=== PATIENT | female | born 1990 | race Hispanic/Latino ===

== ENCOUNTER 2019-08-18 10:36 | Inpatient (IN) | payer MEDICAID ==
[2019-08-18 11:40] LABS: #Basophils 0.1 thou/uL (0.0-0.2); #Eosinphils 0.4 thou/uL (0.0-0.7); #Lymphocytes 3.5 thou/uL (1.20-3.40); #Monocytes 0.9 thou/uL (0.11-0.59); %Basophils 0.9 % (0.0-1.0); %Eosinophils 3.6 % (0.0-10.0); %Lymphocytes 29.3 % (21.0-51.0); %Monocytes 7.6 % (0.0-10.0); %Neutrophils 58.7 % (42.0-75.0); Hemoglobin 12.4 g/dL (12.0-16.0); Mean Corpuscular HGB CONC 31.4 g/dL (32.0-36.0); Mean Corpuscular Hemoglobin 26.8 pg (27.0-31.0); Mean Corpuscular Volume 85.1 fL (78.0-98.0); Mean Platelet Volume 9.9 fL (7.4-10.4); Platelet Count 226 thou/uL (130-400); RBC Distribution Width 13.9 % (11.5-14.5); Red Blood Cell (RBC) Count 4.62 mill/uL (4.20-5.40); White Blood Cell (WBC) Count 11.9 thou/uL (4.8-10.8)
[2019-08-18] MEDS ORDERED: Iopamidol 370 76% 50 ML VIAL FS ONE (12:00)
[2019-08-18 12:05] LABS: Bilirubin Negative (Negative); Blood, Urine Negative (Negative); Clarity Clear (Clear); Glucose, Urine (Dipstick) Normal (Negative); Leukocyte Negative Leu/uL (Negative); Nitrite Negative (Negative); Protein, Urine (Dipstick) 30 mg/dL (Neg-Trace); RBC/HPF 0-3 HPF (0-3); Squamous Epithelial 0-3 HPF (0-3); Urobilinogen Normal mg/dL (Less than 2); WBC/HPF 0-3 HPF (0-3)
[2019-08-18 12:09] LABS: Bacteria/HPF 1+ HPF (None Seen)
[2019-08-18 12:12] LABS: ALT (SGPT) 7 U/L (8-55); AST (SGOT) 10 U/L (5-34); Albumin 3.8 g/dL (3.5-5.0); Alkaline Phosphatase 179 U/L (40-110); Anion Gap 19 mmol/L (10-20); BUN (Urea Nitrogen) 55 mg/dL (7.0-18.7); Bilirubin, Total 0.4 mg/dL (0.2-1.2); Calc. Creatinine Clearance 0 mL/min (70-130); Calcium 8.6 mg/dL (7.8-10.44); Carbon Dioxide 23 mmol/L (22-29); Chloride 103 mmol/L (98-107); Estimated GFR-MDRD 6; Globulin 3.4 g/dL (2.4-3.5); Potassium 4.6 mmol/L (3.5-5.1); Protein, Total 7.2 g/dL (6.0-8.3); Sodium 140 mmol/L (136-145)
--- NOTE | 2019-08-18 12:12 | RAD ---
XR Abdomen 2 View/1 View Cxr History: Pain Comparison: Chest radiograph May 2019 Findings: There is pneumoperitoneum. Lungs are clear. No pneumothorax. Catheter projected left lower hemiabdomen. No dilated air-filled loops of large or small bowel. Impression: Mild to moderate pneumoperitoneum. Code CR: Dr. Khan notified of findings via telephone at 12:08 PM
[2019-08-18 12:16] LABS: Glucose 55 mg/dL (70-105)
[2019-08-18 15:07] LABS: RBC Count-Automated (BF) 0 /cumm; WBC/Nucleated-Auto (BF) 533 uL
[2019-08-18 15:23] LABS: BF Color Colorless; Body Fluid Source Peritoneal Fluid; Clarity Hazy (Clear); Tube # EDTA
[2019-08-18 15:26] LABS: BF Segmented Neutrophils 4 %; Cell Count Non Hematic 82 %; Eosinophils 9 %; Lymphocytes 3 %
[2019-08-18] MEDS ORDERED: cefTRIAXone\\ROCEPHIN 2 GM in Sodium Chloride 0.9% 100 ML IVPB SCH (16:15)
[2019-08-18] MEDS ORDERED: cefTRIAXone\\ROCEPHIN 2 GM VIAL ONE ×2 (16:41→16:44)
[2019-08-18] MEDS ORDERED: Sodium Chloride 0.9% 200 ML ONE (17:03)
[2019-08-18] MEDS ORDERED: Morphine 4 MG/ML VIAL ONE (17:04)
[2019-08-18] MEDS ORDERED: Ondansetron PF 4 MG/2 ML Vial ONE (17:04)
[2019-08-18] MEDS ORDERED: VANCOMYCIN HCL FS SCH (17:15)
[2019-08-18] MEDS ORDERED: GENTAMICIN SULFATE FS SCH (17:15)
[2019-08-18] MEDS ORDERED: [UNRECOGNIZED DRUG - OTHER] FS SCH (17:15)
[2019-08-18 17:39] LABS: Pregnancy Test - Urine (BHCG) Negative (Negative); Pregu Control Background? CLEAR/WHITE (CLR/WHITE); Pregu Control Bar Appear? YES (CONTROL BAR); Specific Gravity 1.008 (1.002-1.036)
--- NOTE | 2019-08-18 18:09 | CON ---
DATE OF CONSULTATION: 08/18/2019 SERVICE: Nephrology. REQUESTING PHYSICIAN: Dr. Bi Khan. REASON FOR CONSULTATION: Abdominal pain and possible peritonitis in PD. HISTORY OF PRESENT ILLNESS: A 28-year-old female with known history of end-stage renal disease, on peritoneal dialysis, presents with 3 days of worsening abdominal pain, which is said to be worse during drainage and at the beginning of filling of PD fluid. There was no associated fever, nausea, vomiting, leg swelling, dizziness, change in bowel habits, or shortness of breath. Due to worsening symptoms, the patient presented to the ER. Peritoneal fluid obtained was suggestive of peritonitis. X-ray of the abdomen showed free air in the abdomen. PAST MEDICAL HISTORY: 1. End-stage renal disease, on peritoneal dialysis. 2. Hypertension. 3. Anemia of chronic kidney disease. PAST SURGICAL HISTORY: 1. Kidney biopsy in [place]. 2. Abdominal hernia repair. 3. PD catheter placement. 4. AV fistula creation. FAMILY HISTORY: Significant for hypertension in mother. SOCIAL HISTORY: The patient lives with mom. Denied alcohol or recreational drug use. ALLERGIES: NO KNOWN DRUG ALLERGIES REPORTED. CURRENT HOME MEDICATIONS: 1. Sodium bicarbonate 650 mg p.o. b.i.d. 2. Fosrenol 1000 mg t.i.d. 3. Torsemide 20 mg p.o. daily. 4. Calcitriol 0.25 mcg daily. 5. Lisinopril 20 mg p.o. daily. 6. Ergocalciferol 1.25 mg once a month. REVIEW OF SYSTEMS: A 12-point review of system performed was negative other than pertinent positives and negatives included in the history of present illness. PHYSICAL EXAMINATION: VITAL SIGNS: Temperature 98.7, pulse rate 67, respiratory rate 15, SpO2 of 97% on room air, and blood pressure 117/83. GENERAL: Young female, in mild painful distress. HEENT: Normocephalic and atraumatic. Oral mucosa is moist. NECK: Supple and nontender with good range of motion. No JVD appreciated. CARDIOVASCULAR: Regular rhythm and rate with normal heart sounds 1 and 2. Soft systolic murmur noted. RESPIRATORY: Good air entry bilaterally with no obvious crackle or rhonchi or use of accessory muscles. GI: Full, soft, and nondistended with normal bowel sounds. Mild abdominal tenderness noted. PD catheter with dressing noted as well. EXTREMITIES: Grossly normal looking atraumatic with no edema, erythema, or cyanosis. FORGING OPERATOR: Conscious and alert and oriented x3 with appropriate mental status. Cranial nerves II through XII are grossly intact. DIAGNOSTIC DATA: CBC showed WBC count of 11.9, hemoglobin of 12.4, MCV of 85.1, platelet of 226 with neutrophil percent of 58.7. CMP showed sodium of 140, potassium 4.6, chloride 103, CO2 of 23, BUN 55, creatinine 8.20, glucose 55, calcium 8.6, total bilirubin 0.4. AST 10, ALT 7, alkaline phosphatase 179, total protein 7.2, albumin 3.8, and globulin 3.4. Urinalysis showed clear urine with pH of 7.0, specific gravity of 1.008. Urine protein of 30 mg/dL, negative ketone, blood, nitrite, bilirubin, and leukocyte esterase. Microscopy showed 0 to 3 rbc and 0 to 3 wbc. PD fluid analysis showed colorless hazy fluid with WBC count of 533 with zero RBC. Differential showed 4% neutrophils, 3% lymphocytes, 9% eosinophils, 2% basophils, and 82% non-hematologic cells. Acute abdominal series x-ray showed [id number] pneumoperitoneum, but no dilated air filled loops of large intestine or small intestine noted. ASSESSMENT: 1. Acute abdominal pain of unclear etiology. 2. Possible peritoneal dialysis associated peritonitis: Though there is leukocytosis, but most of the cells are not white blood cells, actually they are non-hematologic. This raises question about this diagnosis. 3. Pneumoperitoneum of unclear etiology. 4. Hypertension, controlled. 5. End-stage renal disease, on peritoneal dialysis. PLAN: We will start intraperitoneal antibiotic therapy according to protocol. We will also get CT scan of the abdomen and pelvis with oral contrast. Analgesic as needed will be provided. We will await peritoneal fluid culture. We will continue other treatments. We will monitor electrolytes and replete as needed. Further treatment to follow depending on hospital course. Job ID: [id number]
[2019-08-18 18:25] VITALS: BMI 23.3
--- NOTE | 2019-08-18 19:37 | CT ---
CT ABDOMEN AND PELVIS WITHOUT CONTRAST: HISTORY: Left lower quadrant pain. FINDINGS: The lung bases are clear. No pericardial effusion. Small volume pneumoperitoneum. Peritoneal drainage in place, coiled in the pelvis, no kinking. No definite air filled loops of large or small bowel. Normal proximal small bowel rotation. Noncontrast evaluation of the liver, spleen and pancreas is unremarkable. The aortoiliac contour is n onaneurysmal. The kidneys are atrophied. Evaluation of a perforated viscus is severely limited due to the intraperitoneal gas, likely from the peritoneal catheter. No acute osseous abnormality. Osseous findings reveal no osteodystrophy. IMPRESSION: 1. Pneumoperitoneum although not unexpected given the peritoneal dialysis. Evaluation for a perforate d viscus is severely limited. 2. No acute inflammatory process in the abdomen or pelvis is appreciated. POS: HOME
--- NOTE | 2019-08-18 20:20 | HP ---
CHIEF COMPLAINT: Abdominal pain. HISTORY OF PRESENT ILLNESS: This patient is a 28-year-old female with a history of dialysis started in late May. She has started on peritoneal dialysis from the beginning and has remained on that. The patient reports that couple of days ago, she started experiencing abdominal pain that is primarily in the upper abdomen. She reports that it is fairly sharp and pressure-like in nature. She describes it as a constant 7/10, that is worse whenever she is going through the dialysis treatment, both with instilling a dialysate and draining it. REVIEW OF SYSTEMS: She denies any fevers, chills, change in her bowel or bladder habits. She does have a mild dry cough. She has no shortness of breath, nausea, or vomiting. All other systems reviewed. All pertinent positives and negatives noted in the history of present illness. PAST MEDICAL HISTORY: Notable for the end-stage renal disease, on peritoneal dialysis, source is not specifically known to me. She has hypertension and anemia of chronic kidney disease. PAST SURGICAL HISTORY: She does have an AV fistula created, but has never used it. She has history of abdominal hernia repair and a dialysis catheter placement. FAMILY HISTORY: She denies any significant medical problems with any family members. SOCIAL HISTORY: The patient is single. She is a nonsmoker, nondrinker, and nondrug user. She is full code and her mother would be her surrogate decision maker. ALLERGIES: NONE. MEDICATIONS: 1. Sodium bicarbonate 650 one p.o. b.i.d. 2. Fosrenol 1000 mg t.i.d. 3. Torsemide 20 mg p.o. daily. 4. Calcitriol 0.25 mcg one p.o. daily. 5. Lisinopril 20 mg p.o. daily. 6. Ergocalciferol 1.25 mg q.month. PHYSICAL EXAMINATION: VITAL SIGNS: Temperature 98.7, pulse 67, respirations 15, O2 saturations 97% on room air, BP is 117/83. GENERAL APPEARANCE: Age-appropriate female. She does not appear to be in any distress. She is lying comfortably in bed, relatively supine, not tachypneic. HEENT: DENISHA. No OP lesions. NECK: Supple and symmetric without lymphadenopathy, JVD, or bruits. HEART: Regular rate and rhythm without murmurs, gallops, or rubs. LUNGS: Clear to auscultation bilaterally with good chest wall expansion. ABDOMEN: Soft, nondistended. There is tenderness to palpation in the epigastrium. The peritoneal catheter appears healthy. EXTREMITIES: No cyanosis, clubbing, or edema. PSYCHIATRIC: Normal affect and behavior. NEUROLOGIC: Cranial nerves are intact. Normal cognition. LABORATORY DATA: White count is 11.9, hemoglobin 12.4, platelets 226. Sodium 140, potassium 4.6, chloride 103, CO2 is 23, BUN 55, creatinine 8.2, glucose 55, calcium 8.6, AST 10, ALT 7, alkaline phosphatase 179. Urinalysis shows 1+ bacteria, otherwise normal. Peritoneal fluid appears to be hazy, but colorless. White count is 533, red cell is 0, 4 segs, 3 lymphocytes, 9 eosinophils, and 2 basophils. There are 82 non-hematological cells. Acute abdominal series shows [id number] pneumoperitoneum. IMPRESSION AND PLAN: 1. Abdominal pain with radiation up into the chest. It is unclear if this is related to dialysis, but she does have a pneumoperitoneum and some evidence of increased white cells. She has received Rocephin in the emergency department. Dr. Wheeler has seen the patient and plans to do intraperitoneal antibiotics. She has a CT scan of the abdomen pending. We will reassess labs in the morning as well to follow her white count. 2. Possible peritonitis as above. She has received antibiotics. Continue with Rocephin. 3. End-stage renal disease. Again, Dr. Wheeler has been consulted. We will continue with peritoneal dialysis as tolerated. 4. Hypertension. Continue with her lisinopril. Job ID: [id number]
[2019-08-18] MEDS ORDERED: Acetaminophen 325 MG TAB PO PRN (20:51)
[2019-08-18] MEDS: HYDROcodone/Acetaminophen 5/325 mg Tablet PO PRN (21:01)
[2019-08-18] MEDS: Sodium Bicarbonate Tab 325 MG TAB PO SCH (21:06)
[2019-08-19] MEDS: HYDROcodone/Acetaminophen 5/325 mg Tablet PO PRN ×3 (00:41→16:11)
[2019-08-19] MEDS ORDERED: Lisinopril 20 MG TAB PO SCH (09:00)
[2019-08-19] MEDS ORDERED: Prevnar 13-Val Conj/PF 0.5 ML SYRINGE IM ONE (09:00)
[2019-08-19] MEDS: Calcitriol 0.25 MCG CAP PO SCH (09:29)
[2019-08-19] MEDS: Lanthanum Carbonate 500 mg Tablet PO SCH ×3 (09:31→16:12)
[2019-08-19] MEDS: Sodium Bicarbonate Tab 325 MG TAB PO SCH ×2 (09:33→21:47)
[2019-08-19] MEDS: Torsemide 20 MG TAB PO SCH (09:33)
[2019-08-19 10:38] LABS: #Basophils 0.1 thou/uL (0.0-0.2); #Eosinphils 0.4 thou/uL (0.0-0.7); #Lymphocytes 3.2 thou/uL (1.20-3.40); #Monocytes 0.8 thou/uL (0.11-0.59); #Neutrophils 5.9 thou/uL (1.40-6.50); %Basophils 0.8 % (0.0-1.0); %Eosinophils 4.2 % (0.0-10.0); %Lymphocytes 30.6 % (21.0-51.0); %Monocytes 7.2 % (0.0-10.0); %Neutrophils 57.2 % (42.0-75.0); Hemoglobin 12.3 g/dL (12.0-16.0); Mean Corpuscular Hemoglobin 26.9 pg (27.0-31.0); Mean Corpuscular Volume 84.1 fL (78.0-98.0); Mean Platelet Volume 9.6 fL (7.4-10.4); Platelet Count 217 thou/uL (130-400); RBC Distribution Width 14.1 % (11.5-14.5); Red Blood Cell (RBC) Count 4.59 mill/uL (4.20-5.40); White Blood Cell (WBC) Count 10.4 thou/uL (4.8-10.8)
[2019-08-19] MEDS ORDERED: PERIT DIALYSIS NO 6 FS SCH (15:30)
[2019-08-19] MEDS ORDERED: GENTAMICIN SULFATE FS SCH (15:30)
[2019-08-19] MEDS ORDERED: DEX FS SCH (15:30)
--- NOTE | 2019-08-19 15:52 | PRG ---
DATE OF SERVICE: 08/19/2019 SERVICE: Nephrology. SUBJECTIVE: A 28-year-old female with end-stage renal disease, on PD, admitted with to worsening abdominal pain. Impression of suspected peritonitis was made and the patient was started on antibiotics. She reports improvement in abdominal pain, but it has not gone away completely. There is no history of fever, nausea, vomiting, or constipation. OBJECTIVE: VITAL SIGNS: Temperature 97.6, pulse 77, respiratory rate 28, SpO2 100% on room air, blood pressure is 108/78. GENERAL: Young female, in no distress. Afebrile. Anicteric. Acyanotic. HEENT: Normocephalic, atraumatic. Oral mucosa is moist. CARDIOVASCULAR: Regular rhythm and rate with normal heart sounds 1 and 2. RESPIRATORY: Good air entry bilaterally with no crackle or rhonchi or use of accessory muscles. GI: Full, soft with mild diffuse tenderness. Peritoneal catheter noted. Bowel sounds normoactive. EXTREMITIES: Grossly normal looking atraumatic with no edema or erythema. CIGAR TOBACCO PROCESSING SUPERVISOR: Conscious, alert, oriented x3 with appropriate mental status. Cranial nerves 2 through 12 are grossly intact. DIAGNOSTIC DATA: CBC today showed WBC count of 10.4, hemoglobin of 12.3, MCV of 84.1, platelet of 217. Peritoneal fluid culture so far is no growth at 24 hours. ASSESSMENT: 1. Possible peritoneal dialysis associated . This diagnosis is questionable given that the absolute neutrophil count in the peritoneal fluid is only 21 out of 533 and there was no fever, nausea, vomiting. 2. Abdominal pain: Etiology is unclear. CT scan for perforation peritoneum is limited due to absence of contrast. Pancreatitis is a concern as well as excessive fibrin, though peritoneal drainage seems clear. 3. Pneumoperitoneum: Most likely related to PD catheter. 4. Hypertension: Blood pressure is soft at this time. 5. Vitamin D deficiency, on supplementation. PLAN: 1. We will continue intraperitoneal antibiotic therapy post PD treatments. We will also get a lipase level to rule out acute pancreatitis. 2. We will hold lisinopril as blood pressure is soft. 3. Analgesic as needed will be provided. 4. Await peritoneal fluid culture. Job ID: [id number]
--- NOTE | 2019-08-19 21:03 | PDOC.HOSPP ---
- Subjective Subjective: Feeling better in general. Less pain. - Objective Vital Signs & Weight: Vital Signs (12 hours) Temp Pulse Resp BP Pulse Ox 08/19/19 19:05 98.9 F 81 12 132/83 100 08/19/19 16:30 98.9 F 65 12 111/82 100 08/19/19 11:12 97.6 F 77 20 108/78 Weight Weight 132 lb I&O: 08/18/19 08/19/19 08/20/19 06:59 06:59 06:59 Intake Total 240 Balance 240 Result Diagrams: 08/19/19 10:21 08/18/19 11:26 Hospitalist ROS - Medication Medications: Active Medications Generic Name Dose Route Start Last Admin Trade Name Freq PRN Reason Stop Dose Admin Hydrocodone Bitart/Acetaminophen 1 tab 08/18/19 20:53 08/19/19 16:11 [place] 5/325 PO 1 tab Q4H PRN Administration Moderate to Severe Pain (6-10) Calcitriol 0.25 mcg 08/19/19 09:00 08/19/19 09:29 Rocaltrol PO 0.25 mcg DAILY SADI Administration Lanthanum Carbonate 1,000 mg 08/19/19 08:00 08/19/19 16:12 Fosrenol PO 1,000 mg TID-WM SADI Administration Sodium Bicarbonate 650 mg 08/18/19 21:00 08/19/19 09:33 Bicarbonate, Sodium PO 650 mg BID SADI Administration Torsemide 20 mg 08/19/19 09:00 08/19/19 09:33 Demadex PO 20 mg DAILY SADI Administration - Exam General Appearance: NAD, awake alert Neck: supple, symmetric, no JVD, no thyromegaly, no lymphadenopathy, no carotid bruit Heart: RRR, no murmur, no gallops, no rubs, normal peripheral pulses Respiratory: CTAB, no wheezes, no rales, no ronchi, normal chest expansion, no tachypnea, normal percussion Gastrointestinal: soft, non-tender, non-distended, normal bowel sounds, no palpable masses, no hepatomegaly, no splenomegaly, no bruit Gastrointestinal - other findings: PD cath healthy Extremities: no cyanosis, no clubbing, no edema Skin: normal turgor Musculoskeletal: normal tone, normal strength, no muscle wasting Psychiatric: normal affect, normal behavior, A&O x 3 Hosp A/P (1) Abdominal pain Code(s): R10.9 - UNSPECIFIED ABDOMINAL PAIN Status: Acute (2) ESRD on peritoneal dialysis Code(s): N18.6 - END STAGE RENAL DISEASE; Z99.2 - DEPENDENCE ON RENAL DIALYSIS Status: Acute (3) Pneumoperitoneum Code(s): K66.8 - OTHER SPECIFIED DISORDERS OF PERITONEUM Status: Acute (4) HTN (hypertension) Code(s): I10 - ESSENTIAL (PRIMARY) HYPERTENSION Status: Chronic - Plan Doing better. Unclear if she has peritonitis. Culture negative so far on peritoneal fluid. Continue intraperitoneal abx with gent. Can arrange for this as OP through Dr. Wheeler and DC when avail.
[2019-08-20] MEDS: Lanthanum Carbonate 500 mg Tablet PO SCH (09:28)
[2019-08-20] MEDS: Calcitriol 0.25 MCG CAP PO SCH (09:28)
[2019-08-20] MEDS: Torsemide 20 MG TAB PO SCH (09:29)
[2019-08-20] MEDS: Sodium Bicarbonate Tab 325 MG TAB PO SCH (09:29)
[2019-08-20 10:43] VITALS: BP 117/86; TEMP 98.6
[2019-08-20 11:30] LABS: #Basophils 0.1 thou/uL (0.0-0.2); #Eosinphils 0.4 thou/uL (0.0-0.7); #Lymphocytes 2.8 thou/uL (1.20-3.40); #Monocytes 0.7 thou/uL (0.11-0.59); #Neutrophils 5.9 thou/uL (1.40-6.50); %Basophils 0.7 % (0.0-1.0); %Eosinophils 4.2 % (0.0-10.0); %Lymphocytes 28.3 % (21.0-51.0); %Monocytes 6.9 % (0.0-10.0); %Neutrophils 59.9 % (42.0-75.0); Hemoglobin 13.3 g/dL (12.0-16.0); Mean Corpuscular HGB CONC 32.8 g/dL (32.0-36.0); Mean Corpuscular Hemoglobin 27.2 pg (27.0-31.0); Mean Corpuscular Volume 83.1 fL (78.0-98.0); Platelet Count 211 thou/uL (130-400); RBC Distribution Width 13.9 % (11.5-14.5); Red Blood Cell (RBC) Count 4.87 mill/uL (4.20-5.40); White Blood Cell (WBC) Count 9.9 thou/uL (4.8-10.8)
[2019-08-20 11:57] LABS: Albumin 3.7 g/dL (3.5-5.0); Anion Gap 17 mmol/L (10-20); BUN (Urea Nitrogen) 43 mg/dL (7.0-18.7); BUN/Creatinine Ratio 5.75; Calc. Creatinine Clearance 10 mL/min (70-130); Calcium 9.1 mg/dL (7.8-10.44); Carbon Dioxide 21 mmol/L (22-29); Chloride 101 mmol/L (98-107); Estimated GFR-MDRD 6; Glucose 82 mg/dL (70-105); Phosphorus 6.6 mg/dL (2.3-4.7); Potassium 4.3 mmol/L (3.5-5.1); Sodium 135 mmol/L (136-145)
--- NOTE | 2019-08-20 12:07 | PRG ---
DATE OF SERVICE: 08/20/2019 SERVICE: Nephrology. SUBJECTIVE: A 28-year-old female with end-stage renal disease on PD, admitted due to worsening abdominal pain, especially during drainage. Peritoneal dialysis fluid analysis showed leukocytosis suspicious for peritonitis and the patient was started on antibiotics. Abdominal pain is better, though the patient continued to complain of pain during drainage. There has been no fever, nausea, vomiting, chills, or rigors. OBJECTIVE: VITAL SIGNS: Temperature 98.6, pulse 82, respiratory rate 20, SpO2 of 99% on room air, and blood pressure is 117/86. GENERAL: Young female, in no distress. Afebrile. Anicteric. Acyanotic. HEENT: Normocephalic and atraumatic. CARDIOVASCULAR: Regular rhythm and rate with normal heart sounds 1 and 2. RESPIRATORY: Good air entry bilaterally with no crackle or rhonchi. GI: Abdomen is full and soft. Questionable mild diffuse tenderness on deep palpation. PD catheter noted. Bowel sound is normoactive. EXTREMITIES: Grossly normal looking, atraumatic with no edema or erythema. PAINTER DRUM: Conscious, alert, and oriented x3 with appropriate mental status. DIAGNOSTIC DATA: CBC showed WBC count of 9.9, hemoglobin of 13.3, and platelet of 211. PD fluid culture so far is no growth at 48 hours. ASSESSMENT AND PLAN: 1. Suspected peritonitis. Continue intraperitoneal antibiotic therapy. 2. Continue PD treatment as before. 3. The patient can be discharged from Nephrology point of view. Arrangement has been made for outpatient intraperitoneal antibiotic therapy. We will however hold lisinopril due to soft blood pressure at this time. Job ID: [id number]
[2019-08-20] MEDS: HYDROcodone/Acetaminophen 5/325 mg Tablet PO PRN (12:20)
--- NOTE | 2019-08-21 05:05 | PQF ---
ELLY SHERWOOD DAVID [id number] [id number] CLINICAL DOCUMENTATION CLARIFICATION FORM: POST DISCHARGE Addendum to original discharge summary date: ____ Late entry note date: __ DATE: 08/21/19 ATTN: Sriram Holbrook Please exercise your independent, professional judgment in responding to the clarification form. Clinical indicators are provided on the bottom of this form for your review Can you please further specify if peritonitis is a complication of peritoneal dialysis or not? Please check appropriate box(s): [x ] Peritonitis as a complication of peritoneal dialysis [ ] Peritonitis not a complication of peritoneal dialysis [ ] Other diagnosis [ ] Unable to determine In addition, please specify: Present on Admission (POA): [ ] Yes [ ] No [ ] Unable to determine CLINICAL INDICATORS - SIGNS / SYMPTOMS / LABS Consult- Dr. Wheeler pg.1- Abdominal pain and possible peritonitis in PD Consult- Dr. Wheeler pg.1-Presents with 3 days of worsening abdominal pain, which is said to be worse during drainage and at the beginning of filling of PD fluid Consult- Dr. Wheeler pg.1-Peritoneal fluids obtained was suggestive of peritonitis Consult- Dr. Wheeler pg.2-Acute abdominal pain of unclear etiology Consult- Dr. Wheeler pg.2-Possible peritoneal dialysis associated peritonitis H and P pg.2- Abdominal pain with radiation up into the chest pain. It is unclear if this is related to dialysis, but she does have a pneumoperitoneum RISK FACTORS hx of ESRD-Consult- Dr. Wheeler pg.1- On peritoneal dialysis-Consult- Dr. Wheeler pg.1- Hypertension-Consult- Dr. Wheeler pg.1- Pneumoperitoneum- H and P pg.2 Suspected peritonitis- PN Liam Gottlieb pg.1 TREATMENT: acute abdomen series 08/18 Abdomen/Pelvis CT 08/18 intraperitoneal antibiotic therapy-Consult- Dr. Wheeler pg.2 Rocephin 2 gm IV DEC 23 Vancomycin 2gm IV DEC 23 (This form is maintained as a part of the permanent medical record) 2014 [employer]. All Rights Reserved Jorge L [email or web address] [not provided] MTDD
--- NOTE | 2019-08-21 11:28 | DIS ---
DATE OF ADMISSION: 08/18/2019 DATE OF DISCHARGE: 08/20/2019 DISCHARGE DIAGNOSES: 1. Abdominal pain. 2. Possible spontaneous bacterial peritonitis. 3. End-stage renal disease, on peritoneal dialysis. 4. Hypertension. 5. Pneumoperitoneum. HISTORY OF PRESENT ILLNESS: This patient is a 28-year-old female, who had started on peritoneal dialysis in May and she is followed by Dr. Wheeler. She presented via the emergency department reporting some abdominal pain. She had an acute abdominal series and a CT abdomen and pelvis, both showing pneumoperitoneum with no other acute inflammatory processes identified. The peritoneal fluid was sampled that showed a few white blood cells. The differential of the fluid analysis showed colorless hazy fluid with 533 white cells, 0 red cells. However, there was a proliferation of non-hematological cells as well; therefore, it was unclear whether the patient actually had peritonitis. However, there were no other significant findings found on her workup to account for the source of her pain. White count was 11.9, and alkaline phosphatase was 179. The patient was treated with IV Rocephin and subsequently with gentamicin infusion in the peritoneal space by Dr. Wheeler. She had some improvement of her abdominal pain, although she was experiencing some discomfort in her shoulder areas, which is felt to be possibly some referred pain from the pneumoperitoneum. Ultimately, Dr. hWeeler felt the patient could continue to be treated with outpatient treatment; however, it took an additional day to arrange outpatient gentamicin. Once that was arranged, it was felt the patient was stable for discharge. PHYSICAL EXAMINATION: VITAL SIGNS: On the day of discharge, temperature is 98.6, pulse 82, respirations 20, blood pressure 117/86. GENERAL: She is awake, alert, oriented. HEART: Regular rate and rhythm. LUNGS: Clear bilaterally. ABDOMEN: Soft, nontender, and nondistended. The peritoneal catheter appeared to be healthy. EXTREMITIES: Have no cyanosis, clubbing, or edema. DISPOSITION: The patient is discharged to home. ACTIVITY: As tolerated. DIET: She will remain on a renal diet. MEDICATIONS: She will be on: 1. Bicarbonate 650 p.o. b.i.d. 2. Calcitriol 0.25 p.o. daily. 3. Lanthanum carbonate one p.o. t.i.d. with meals. 4. Torsemide 20 mg daily. 5. Ergocalciferol 1.25 mg once a month. FOLLOWUP: She is to follow up at [facility] and to follow up with Dr. Wheeler as previously planned. She can return to the hospital at anytime should she feel need to do so. TIME SPENT: Total time in discharge activities was 31 minutes. Job ID: [id number]
== END 2019-08-20 13:45 | disposition home or self-care (01) | DRG 867 ==
LOC: ERS 10:36 → 3SE 18:10
PROVIDERS: ADMIT Internal Medicine; ATTEND Internal Medicine
PROC: 3E0234Z Introduction of Serum, Toxoid and Vaccine into Muscle, Percutaneous Approach (ICD-10-PCS; principal; 2019-08-19)
DX: T80.29XA Infection following other infusion, transfusion and therapeutic injection, initial encounter (principal); N18.6 End stage renal disease; K65.2 Spontaneous bacterial peritonitis; I12.0 Hypertensive chronic kidney disease with stage 5 chronic kidney disease or end stage renal disease; Z23 Encounter for immunization; D63.1 Anemia in chronic kidney disease; K66.8 Other specified disorders of peritoneum; E55.9 Vitamin D deficiency, unspecified; D72.829 Elevated white blood cell count, unspecified; Z79.899 Other long term (current) drug therapy; Z99.2 Dependence on renal dialysis; Y84.1 Kidney dialysis as the cause of abnormal reaction of the patient, or of later complication, without mention of misadventure at the time of the procedure
CPT/HCPCS: 36415; 36416; 74022; 74176; 80053; 80069; 81003; 81015; 81025; 82150; 83690; 85025; 85060; 86140; 87070; 87205; 89051; 90945; 94760; 96365; 96375; G0257; J0696; J2270; J2405; J3490; Q9967